=== PATIENT | female | born 1960 | race Caucasian/White ===

== ENCOUNTER 2019-01-21 17:36 | Emergency (ER) | payer OTHER ==
[~2019-01-21] VITALS: Ht 152.4 cm; Wt 73.9 kg
[~2019-01-21 17:36] MED LIST: LEVAQUIN500 MG PO; NABUMETONE750 MG PO; ZANTAC300 MG PO
[2019-01-21] MEDS ORDERED: [UNRECOGNIZED DRUG - OTHER] (17:53)
[2019-01-21] MEDS ORDERED: VASOTEC2.5 MG (17:53)
== END 2019-01-21 22:26 | disposition home or self-care (01) ==
LOC: ER 17:36
DX: J06.9 Acute upper respiratory infection, unspecified (principal); R06.02 Shortness of breath

== ENCOUNTER → 2020-04-15 | Emergency (ER) | payer OTHER ==
[~2020-04-15] MED LIST changes: +VASOTEC2.5 MG; +[UNRECOGNIZED DRUG - OTHER]
== END | disposition left against medical advice (07) ==
LOC: ER 05:42
DX: Z53.20 Procedure and treatment not carried out because of patient's decision for unspecified reasons (principal)

== ENCOUNTER 2022-09-14 18:13 | Emergency (ER) | payer OTHER ==
[~2022-09-14] VITALS: Ht 154.9 cm; Wt 71.7 kg
[2022-09-14] MEDS ORDERED: CANDESARTAN CILE8 MG PO (18:50)
== END 2022-09-14 19:51 | disposition home or self-care (01) ==
LOC: ER 18:13
DX: M54.31 Sciatica, right side (principal); M54.50 Low back pain, unspecified; Z88.2 Allergy status to sulfonamides

== ENCOUNTER 2023-02-13 19:11 | Emergency (ER) | payer OTHER ==
[~2023-02-13] VITALS: Ht 154.9 cm; Wt 74.4 kg
[~2023-02-13 19:11] MED LIST changes: +CANDESARTAN CILE8 MG PO
== END 2023-02-13 20:00 | disposition home or self-care (01) ==
LOC: ER 19:11
DX: R21 Rash and other nonspecific skin eruption (principal); T46.7X5A Adverse effect of peripheral vasodilators, initial encounter; Y92.9 Unspecified place or not applicable